=== PATIENT | male | born 1975 | race Caucasian/White ===

== ENCOUNTER → 2017-09-02 | Outpatient (CLI) | payer BC ==
--- NOTE | 2017-09-02 18:32 | XR ---
Two-view spine HISTORY: Neck pain, back pain Frontal and lateral views of the cervical, thoracic, lumbar spine submitted and correlated to prior l [facility] spine 07/13/2015 Retrolisthesis grade 1 C3-4 with associated loss of disc height at C3-4, C4-5 and C5-6. Facet arthrop athy changes are present. There is multilevel spondylosis. Lumbar vertebral bodies show a similar nishant earance, loss of disc height is present at L5-S1, L2-3 with associated spondylosis. Vertebral bodies show preserved height and bone mineralization. Sclerosis present in the posterior elements of the low er lumbar spine. Thoracic vertebral bodies show multilevel spondylosis. IMPRESSION: Degenerative disc disease. There may be facet arthropathy.
== END | disposition home or self-care (01) ==
LOC: RADXRMAIN 16:27
PROVIDERS: ATTEND Physician Assistant
DX: M54.5 Low back pain (principal); M51.36 Other intervertebral disc degeneration, lumbar region; M50.31 Other cervical disc degeneration, high cervical region; M54.2 Cervicalgia
CPT/HCPCS: 72082

== ENCOUNTER 2019-01-19 11:02 | Day surgery (SDC) | payer BC ==
[2019-01-17 11:57] VITALS: BMI 26.9
[~2019-01-19 11:02] MED LIST: CLINDAMYCIN 900 MG in DEXTROSE 5% IN WATER 50 ML IVPB ONE; LACTATED RINGERS 1,000 ML IV SCH; LIDOCAINE 1% 20 ML VIAL (10MG/ML) FOR IV START INTRADERMA PRN
[2019-01-19] MEDS ORDERED: MIDAZOLAM (PF) 2 MG/2 ML VIAL IV ONE (11:35)
[2019-01-19] MEDS ORDERED: ONDANSETRON 4 MG/2 ML VIAL IVP ONE (11:49)
[2019-01-19] MEDS ORDERED: ROPIVACAINE 5 MG/ML 30 ML VIAL ONE (12:19)
[2019-01-19] MEDS ORDERED: PROPOFOL 10 MG/ML 20 ML VIAL IV ONE (12:19)
[2019-01-19] MEDS ORDERED: LIDOCAINE 1% INJ 10MG/ML (20 ML MDV) ONE (12:19)
[2019-01-19] MEDS ORDERED: fentaNYL (PF) 50 MCG/ML 2 ML AMP ONE (12:19)
--- NOTE | 2019-01-19 12:29 | P.ANPRN ---
Procedure Note - Anesthesia - Nerve Block Performed Left Adductor Canal Single Time Out Performed: Yes Date of Procedure: 01/19/19 Procedure Start Time: 11:34 Location of Patient Procedure: PreOp Indication: Acute Post-Operative Pain, Requested by physician Sedation Type: Sedate with meaningful contact maintained Preparation: Sterile Prep, Sterile Dressing Position: Supine Catheter: None Needle Gauge: 20 Technique: Ultrasound Injectate: Other (see comment) (Ropivacaine 0.25% 25 ml) Blood Aspirated: No Pain Paresthesia on Injection Noted: No Resistance on Injection: Normal
--- NOTE | 2019-01-19 12:38 | P.ANPRN ---
Procedure Note - Anesthesia - Nerve Block Performed Left Popliteal Single Date of Procedure: 01/19/19 Procedure Start Time: 11:34 Procedure Stop Time: 11:44 Location of Patient Procedure: PreOp Indication: Acute Post-Operative Pain, Requested by physician Sedation Type: Sedate with meaningful contact maintained Preparation: Sterile Prep, Sterile Dressing Position: Left Lateral Catheter: None Needle Types: Pajunk Needle Gauge: 20 Technique: Ultrasound Injectate: Other (see comment) (Ropivacaine 0.25% 25 ml) Blood Aspirated: No Pain Paresthesia on Injection Noted: No Resistance on Injection: Normal Events: Uneventful and Well Tolerated
[2019-01-19] MEDS ORDERED: LACTATED RINGERS 1,000 ML IV ONE (13:45)
--- NOTE | 2019-01-19 14:44 | FL ---
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 2.10 min fl time. 2 pics scanned
[2019-01-19 14:59] VITALS: TEMP 97.5
[2019-01-19 15:09] VITALS: RESP 16
--- NOTE | 2019-01-19 15:09 | P.OP ---
Date of Procedure: 01/19/19 Preoperative Diagnosis: 1. Left hallux valgus 2. Left bunionette Postoperative Diagnosis: Same Procedure(s) Performed: 1. Correction of left hallux valgus with triplanar correction and first tarsometatarsal joint arthrodesis 2. Correction of left hallux valgus with modified Serna procedure 3. Correction of left bunionette deformity with lateral eminence resection the fifth metatarsal head 4. Application of short leg splint by physician, left leg Anesthesia: СЕРГЕЙ, regional Surgeon: Roberto Barton Oil Rag Washer #1: Stevan Coffey Estimated Blood Loss (ml): 15 IV fluids (ml): 1,200 Pathology: none sent Condition: stable Disposition: PACU Indications for Procedure: The patient is a very pleasant 43-year-old male with a medical history significant for being a former smoker. The patient met with me in the office ac companied by his to discuss treatment on a painful left hallux valgus deformity that had failed a long course of nonsurgical treatment. The patient has failed over 6 months of nonsurgical treatment including activity modification, shoe modification, orthotics, and stretching all with minimal relief. The patient came to me to discuss surgery. I recommended that he quit smoking and passed a urine Continine test due to his increased risk of having a complication because of smoking. The patient quit smoking and passed a urine continine screen. I agreed to perform his surgery. We discussed potential risks and complications of surgery including but not limited to risk of anesthesia, superficial infection, deep infection, delayed wound healing, superficial wound necrosis, nonunion of the fusion site, malunion of the fusion site, over correction of the deformity, under correction of the deformity, recurrence, DVT, PE, generalized to satisfaction with surgery, an inability to regain preinjury level of function, and possibly loss of life or limb. The patient voiced his understanding these potential complications while acknowledging other less common complications are possible. He provided his verbal and written consent to go forward with surgery. Description of Procedure: I met with the patient in preoperative holding and discussed surgery. His left leg was marked with my initials. I reviewed the consent form with the patient and his . The patient was then given a popliteal and saphenous nerve block by anesthesia. He was then brought back to the operating room. He was positioned on the or table where a general anesthetic and preoperative antibiotics were given. A tourniquet was applied to the proximal aspect of the left leg. All bony prominences were well-padded. The left leg was then prepped and draped in the standard sterile fashion. Prior to starting surgery timeout was performed identifying the correct patient, operative extremity, and procedure. The patient's leg was then elevated, exsanguinated with an Esmarch bandage, and the tourniquet was inflated to 250 mmHg. I began by outlining a longitudinal incision just medial to the EHL tendon starting at the proximal pole of the medial cuneiform and ending at the mid shaft of the first metatarsal. Skin incision was made with a scalpel. Dissection was carried down carefully to the subcutaneous tissue with tenotomy scissors. The EHL tendon sheath was incised and the tendon retracted laterally. The joint capsule sharply opened. Attention was then turned to the first webspace. A stab incision was made and dissection was carried down the lateral aspect of the first MTP joint capsule. A lateral release was performed. Attention was then turned back proximally. An osteotome was used to release the plantar first TMT capsule facilitate rotation. A K wire joystick was placed per all to the joint and the first metatarsal base. I manually was able to reduce the first metatarsal over the sesamoids. A stab incision was made at the proximal lateral aspect of the first metatarsal base. A 2.5 mm full was then placed laterally. A low angle cutting guide was placed over the joint and a stab incision was then made over the lateral aspect of the second metatarsal shaft just distal to the end of the cut guide. The position was placed with 1 allison over the lateral cortex of the second metatarsal and the other allison over the medial aspect of the first metatarsal. The first metatarsal joystick pin was rotated and the position was tightened. Fluoroscopy was then used to verify that the intermetatarsal angle and sesamoids were reduced. A pin was placed through the positioner holding the reduction. A joint seeker was then placed in the lateral aspect of the joint and a low angle cutting guide was positioned over the joint securer and pinned into place. The joint seeker was removed and fluoroscopy was used to verify appropriate cuts. A microsagittal saw was then used to remove bone off the first metatarsal base and medial cuneiform. The oblique pain to the cut guide was removed. The cut guide was taken off of the 2 pins and a distractor compressor was applied. The joint was gently distracted and the cut bone was removed. There is a small noel off the lateral base of the first metatarsal which was contoured with a curet. The joint was thoroughly irrigated and then perforated with a 2.0 mm drill bit to facilitate fusion. The cut surfaces were then gently compressed and as the first metatarsal base was being compressed the 1.5 mm fulcrum was placed. An olive tipped K wires placed laterally across the joint and a smooth-tipped 0.0625 wire was placed medially. I verified that the joint was adequately decompressed and the metatarsal was reduced. Biplanar plates were then placed dorsolaterally and medially. The wound was thoroughly irrigated and closed in layers after the K wire and olive tipped K wires were removed. Attention was then turned to the medial eminence of the first MTP joint. There was still a small prominence. The skin incision with a scalpel and dissection was carried down carefully through subcu Dinges tissue. The capsule was incised and a Oracio was used to contour the first metatarsal head. A small amount of the capsule was incised and then imbricated with 2-0 Vicryl. Attention was then turned to lateral eminence of the fifth metatarsal. Skin incision was made with a scalpel and dissection was carried down carefully subcutissue. The capsule was incised in a Oracio was used to contour the prominence of the fifth metatarsal head. The wound was thoroughly irrigated and closed in layers. Final fluoroscopic images were taken. On the AP view the intermetatarsal angle was reduced and the sesamoids were covered by the first metatarsal head. The joint appeared to be adequately compressed and the hardware was in place. A sterile dressing followed by well-padded bulky Wayne splint was placed with the ankle in neutral. The patient was awoken from his anesthetic transferred to a [place] and brought to PACU and procedure well.
[2019-01-19 16:37] VITALS: BP 119/72; PULSE 70
== END 2019-01-19 16:38 | disposition home or self-care (01) ==
LOC: OR 11:02
PROVIDERS: ATTEND Orthopaedic Surgery
DX: M20.12 Hallux valgus (acquired), left foot (principal); M21.622 Bunionette of left foot; Z87.891 Personal history of nicotine dependence; Z79.890 Hormone replacement therapy; Z88.0 Allergy status to penicillin; Z97.3 Presence of spectacles and contact lenses
CPT/HCPCS: 28297; 28110; 64447; 64445; C1713; J2405; J2001; J3010; J2795; J2704; J2250

== ENCOUNTER 2022-01-22 21:16 | Emergency (ER) | payer BC ==
[2022-01-22 21:28] VITALS: BP 136/89; PULSE 94; RESP 22; TEMP 98.3
--- NOTE | 2022-01-22 22:43 | ED ---
URI HPI - General Chief Complaint: Upper Respiratory Infection Stated Complaint: needs Covid test Time Seen by Provider: 01/22/22 21:38 Source: patient, family Mode of arrival: ambulatory Limitations: no limitations - History of Present Illness Initial Comments: This patient is a 46-year-old man who presents to have evaluation of upper respiratory infection. He states that over the course of this afternoon and evening he has noted some nasal congestion and drainage. Patient's comes in for evaluation because his did have a positive covert test today. He is not having any dyspnea. He has not noted other symptoms. MD Complaint: nasal congestion -: hour(s) Severity: mild - Related Data Home Medications Medication Instructions Recorded Confirmed Testosterone [Androgel 1.62% Gel 1 applic TOPICAL DAILY 01/17/19 01/19/19 Pump] Previous Rx's Medication Instructions Recorded Aspirin 325 mg PO BID 14 Days #28 tab 01/19/19 Docusate [Colace] 100 mg PO BID #60 capsule 01/19/19 Hydrocodone/Acetaminophen [[place] 1 tab PO Q4-6H PRN #40 tab 01/19/19 5-325] Allergies Allergy/AdvReac Type Severity Reaction Status Date / Time Penicillins Allergy Anaphylaxis Verified 01/22/22 21:28 Review of Systems ROS Statement: Those systems with pertinent positive or pertinent negative responses have been documented in the HPI. ROS Other: All systems not noted in ROS Statement are negative. Constitutional: Denies: fever, chills ENT: Reports: congestion Respiratory: Denies: cough, dyspnea Cardiovascular: Denies: chest pain, palpitations Gastrointestinal: Denies: abdominal pain, vomiting, diarrhea Neurological: Denies: headache Past Medical History Additional Past Medical History / Comment(s): low testosterone levels History of Any Multi-Drug Resistant Organisms: None Reported Additional Past Surgical History / Comment(s): HAS HAD LT BUNION SHAVED SEVERAL TIMES Past Anesthesia/Blood Transfusion Reactions: No Reported Reaction Past Psychological History: No Psychological Hx Reported Smoking Status: Current every day smoker Past Alcohol Use History: None Reported Past Drug Use History: Marijuana - Past Family History Father Family Medical History: Cancer Mother Family Medical History: Cancer General Exam Limitations: no limitations General appearance: alert, in no apparent distress Head exam: Present: atraumatic, normocephalic ENT exam: Present: normal oropharynx Respiratory exam: Present: normal lung sounds bilaterally. Absent: respiratory distress, wheezes, rales, rhonchi, stridor Cardiovascular Exam: Present: regular rate, normal rhythm, normal heart sounds. Absent: systolic murmur, diastolic murmur, rubs, gallop GI/Abdominal exam: Present: soft. Absent: distended, tenderness, guarding, rebound, rigid, mass Extremities exam: Present: normal inspection, normal capillary refill. Absent: pedal edema, calf tenderness Neurological exam: Present: alert Skin exam: Present: warm, dry, intact, normal color. Absent: rash Course Vital Signs 01/22/22 21:25 Temperature 98.3 F Pulse Rate 94 Respiratory 22 Rate Blood Pressure 136/89 O2 Sat by Pulse 98 Oximetry Medical Decision Making - Lab Data Lab Results 01/22/22 Range/Units 21:33 Coronavirus (PCR) Detected A (Not Detectd) Disposition Clinical Impression: COVID-19 Disposition: HOME SELF-CARE Condition: Good Instructions (If sedation given, give patient instructions): COVID-19 (Coronavirus Disease 2019) (ED) Is patient prescribed a controlled substance at d/c from ED?: No Referrals: Clayton Jules DO [Primary Care Provider] - 1-2 days
== END 2022-01-22 23:40 | disposition home or self-care (01) ==
LOC: EC 21:16
DX: U07.1 COVID-19 (principal); F17.200 Nicotine dependence, unspecified, uncomplicated; Z88.0 Allergy status to penicillin
CPT/HCPCS: 87635; 99283

== ENCOUNTER → 2023-09-23 | Outpatient (CLI) | payer BC ==
[2023-09-23 16:22] LABS: HCT 48.3 % (39.6-50.0); HGB 15.5 g/dL (13.0-17.0); MCH 29.4 pg (27.0-32.0); MCHC 32.1 g/dL (32.0-37.0); MCV 91.5 FL (80.0-97.0); Mean Platelet Volume 9.4 FL (9.5-12.2); NRBC Per 100 WBC 0 X 10*3/uL (0.00-0.01); Platelet Count 270 X 10*3/uL (140-440); RBC 5.28 X 10*6/uL (4.40-5.60); RDW 13.1 % (11.5-14.5); WBC 8.89 X 10*3/uL (4.50-10.00)
[2023-09-23 16:44] LABS: ALT 23 U/L (10-49); AST 27 U/L (14-35); Albumin 4.4 g/dL (3.8-4.9); Albumin/Globulin Ratio 1.83 Ratio (1.60-3.17); Alkaline Phosphatase 106 U/L (41-126); BUN/Creat Ratio 17.36 Ratio (12.00-20.00); Blood Urea Nitrogen 19.1 mg/dL (9.0-27.0); Calcium 9.9 mg/dL (8.7-10.3); Carbon Dioxide 27.4 mmol/L (21.6-31.8); Chloride 105 mmol/L (96-109); Chol/HDL Ratio 3.18 Ratio; Globulin 2.4 g/dL (1.6-3.3); Glucose 102 mg/dL (70-110); LDL Cholesterol,Calculated 99.8 mg/dL (0.0-131.0); Potassium 4.8 mmol/L (3.5-5.5); Sodium 142 mmol/L (135-145); T4, Free (Free Thyroxine) 1.14 ng/dL (0.80-1.80); Total Bilirubin 0.4 mg/dL (0.3-1.2); Total Protein 6.8 g/dL (6.2-8.2); VLDL Calculation 16.08 mg/dL (5.00-40.00)
== END | disposition home or self-care (01) ==
LOC: LABWHC1 09:32
PROVIDERS: ATTEND Family Medicine
DX: Z00.00 Encounter for general adult medical examination without abnormal findings (principal); Z12.5 Encounter for screening for malignant neoplasm of prostate; Z13.1 Encounter for screening for diabetes mellitus; E29.1 Testicular hypofunction; E04.9 Nontoxic goiter, unspecified
CPT/HCPCS: 36415; 80053; 80061; 84153; 84439; 84443; 85027

== ENCOUNTER 2024-08-24 11:32 | Day surgery (SDC) | payer BC, OTHER ==
[2024-08-23 11:52] VITALS: BMI 29.0
[2024-08-24 12:23] VITALS: RESP 18; TEMP 97.7
[2024-08-24] MEDS: LACTATED RINGERS 1,000 ML IV SCH (12:26)
[2024-08-24] MEDS: IV FLUID CONTINUATION 1,000 ML IV ONE (12:31)
[2024-08-24] MEDS ORDERED: PROPOFOL 10 MG/ML 20 ML VIAL IV ONE (13:00)
--- NOTE | 2024-08-24 13:21 | P.PCN ---
Date of Procedure: 08/24/24 Procedure(s) Performed: BRIEF HISTORY: Patient is a 49-year-old pleasant white male scheduled for an elective colonoscopy as a part of screening for colon cancer/positive Cologuard PROCEDURE PERFORMED: Colonoscopy with snare polypectomy. PREOPERATIVE DIAGNOSIS: Screening for colon cancer/positive Cologuard. IV sedation per Anesthesia. PROCEDURE: After informed consent was obtained, the patient, was brought into the endoscopy unit. IV sedation was administered by Anesthesia under continuous monitoring. Digital rectal examination was normal. Initially the Olympus CF-160 flexible video colonoscope was then inserted in the rectum, gradually advanced into the cecum without any difficulty. Careful examination was performed as the scope was gradually being withdrawn. Ileocecal valve and the appendiceal orifice were visualized and appeared normal. Prep was excellent. Mucosa of the cecum, ascending colon, normal. The hepatic flexure there was a 5 mm polyp that was removed by cold snare polypectomy. Rest of the transverse colon, descending colon, sigmoid colon, and rectum appeared normal. Scattered sigmoid diverticulosis. Retroflexion was performed in the rectum and grade 2 internal hemorrhoids were seen. The patient tolerated the procedure well. IMPRESSION: 5 mm hepatic flexure polyp status post cold snare polypectomy Grade 2 internal hemorrhoids Scattered sigmoid diverticulosis RECOMMENDATIONS: Findings of this examination were discussed with the patient as well as the family. He was advised to follow-up with the biopsy results. If the biopsy reveals adenoma he can have repeat colonoscopy in 5 years.
[2024-08-24 13:45] VITALS: BP 132/79; PULSE 81
== END 2024-08-24 14:24 | disposition home or self-care (01) ==
LOC: ORWHC2ENDO 11:32
PROVIDERS: ATTEND Internal Medicine Gastroenterology
DX: Z12.11 Encounter for screening for malignant neoplasm of colon (principal); K57.30 Diverticulosis of large intestine without perforation or abscess without bleeding; D12.3 Benign neoplasm of transverse colon; K64.1 Second degree hemorrhoids; F17.200 Nicotine dependence, unspecified, uncomplicated; Z88.0 Allergy status to penicillin; Z79.899 Other long term (current) drug therapy; Z98.890 Other specified postprocedural states
CPT/HCPCS: 88305; 45385; J2704

== ENCOUNTER → 2024-10-12 | Outpatient (CLI) | payer OTHER ==
--- NOTE | 2024-10-12 13:18 | US ---
EXAMINATION TYPE: US thyroid st tissue head/neck DATE OF EXAM: 10/12/2024 COMPARISON: NONE CLINICAL INDICATION: Male, 49 years old with history of E04.9 NONTOXIC GOITER, UNSPECIFIED; Pt states family history of thyroid issues TECHNIQUE: Grayscale and color Doppler imaging of the thyroid gland. FINDINGS: GLAND SIZE: Right Lobe: 4.4 x 1.9 x 1.9 cm Overall Parenchyma: homogeneous Left Lobe: 3.7 x 1.6 x 1.4 cm Overall Parenchyma: homogeneous Isthmus Thickness: 0.3 cm NODULES RIGHT: # of nodules measured on right: 0 LEFT: # of nodules measured on left: 0 ISTHMUS: # of nodules measured in the isthmus: 0 Bilateral neck scanned, no evidence of lymphadenopathy. 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 IMPRESSION: Unremarkable thyroid ultrasound X-Ray Nela Coreas, Workstation: [employer]FFANIE, 10/12/2024 1:15 PM
== END | disposition home or self-care (01) ==
LOC: RADUSWWP 12:26
PROVIDERS: ATTEND Family Medicine
DX: E04.9 Nontoxic goiter, unspecified (principal)
CPT/HCPCS: 76536